=== PATIENT | male | born 1970 | race Caucasian/White ===

== ENCOUNTER 2021-06-24 07:38 | Day surgery (SDC) | payer BC ==
[2021-06-19 14:49] LABS: BASOPHILS % (AUTO) 0.8 % (0-1); EOSINOPHILS % (AUTO) 0.7 % (0-6); LYMPHOCYTES # (AUTO) 1.3 X10'3 (1.1-4.8); LYMPHOCYTES % (AUTO) 23.5 % (21-51); MEAN CORPUSCULAR HEMOGLOBIN 32.2 PG (27.0-31.0); MEAN CORPUSCULAR HGB CONC 34.6 g/dL (33.0-36.5); MEAN CORPUSCULAR VOLUME 93.2 FL (78-98); MEAN PLATELET VOLUME 8.3 FL (7.4-10.4); MONOCYTES # (AUTO) 0.3 X10'3 (0-0.9); MONOCYTES % (AUTO) 6.1 % (2-12); NEUTROPHILS # (AUTO) 3.7 X10'3 (1.8-7.7); NEUTROPHILS % (AUTO) 68.9 % (42-75); PRE OP HEMATOCRIT 46.3 % (42.0-52.0); PRE OP PLATELET COUNT 224 X10'3 (140-440); RED BLOOD COUNT 4.97 X10'6 (4.70-6.10); RED CELL DISTRIBUTION WIDTH 13.1 % (11.5-14.5)
[2021-06-19 15:00] LABS: PRE OP PROTIME 10.3 SECONDS (9.0-12.0)
[2021-06-19 15:04] LABS: ALBUMIN 3.9 G/DL (3.4-5.0); ALBUMIN/GLOBULIN RATIO 1.1 (1.1-1.5); ALKALINE PHOSPHATASE 94 IU/L (46-116); BLOOD UREA NITROGEN 17 MG/DL (7-18); BUN/CREATININE RATIO 16.8 (5.4-32.0); CALCIUM 8.9 MG/DL (8.5-10.1); CHLORIDE 109 MMOL/L (99-107); CREATININE 1.01 MG/DL (0.60-1.10); PRE OP ALT 31 U/L (30-65); PRE OP ANION GAP 9 (8-16); PRE OP AST 18 U/L (10-37); PRE OP BILIRUB, TOTAL 0.6 MG/DL (0.0-1.0); PRE OP GLUCOSE 88 MG/DL (70-104); PRE OP POTASSIUM 4.2 MMOL/L (3.4-5.1); PRE OP SODIUM 144 MMOL/L (135-145); TOTAL CARBON DIOXIDE 25.8 MMOL/L (24-32); TOTAL PROTEIN 7.6 G/DL (6.4-8.2); eGFR 78 ML/MIN
[2021-06-24] VITALS (13 sets, daily range): BP systolic 121–143; BP diastolic 84–95
[~2021-06-24] VITALS: Ht 175.3 cm; Wt 88.5 kg
[~2021-06-24 07:38] MED LIST: HYDR25SU48 RC; MULT-1085 PO; OMEG-167 PO; diazepam 5mg tablet PO PRN; famotidine 20mg tablet PO ONE; ringers solution, lacted 1,000 ML IV SCH
--- NOTE | 2021-06-24 08:44 | NUR ---
PT DECLINED VALIUM WHEN OFFERED PRE-OP
[2021-06-24] MEDS: oxymetazoline 15 ML nasal spray NS PRN ×2 (09:17→09:20)
[2021-06-24] MEDS ORDERED: diazepam 5mg tablet PO PRN (09:23)
--- NOTE | 2021-06-24 09:28 | NUR ---
PT CURRENTLY REQUESTING THE PERVIOUSLY OFFERED VALIUM PO PRE-OP, STATES FEEL "JUMPY"
[2021-06-24] MEDS ORDERED: cocaine 4% topical solution 4ml bottle ONE (09:59)
[2021-06-24] MEDS ORDERED: mupirocin 2% ointment 22GM ONE (09:59)
[2021-06-24] MEDS ORDERED: LIDOCAINE 1%/EPI 1:100,000 inj. 10 ML multi-dose vial ONE ×2 (09:59→10:21)
[2021-06-24] MEDS ORDERED: oxymetazoline 15 ML nasal spray NS ONE (10:00)
[2021-06-24] MEDS ORDERED: fentaNYL/PF 50MCG/1 ML 2ML syringe ONE (10:40)
[2021-06-24] MEDS ORDERED: midazolam 1 mg/ML 2ml injection ONE (10:40)
[2021-06-24] MEDS ORDERED: meperidine/PF 25mg/ml syringe ONE (10:40)
[2021-06-24] MEDS ORDERED: propofol inj 20 ML IV ONE (10:51)
[2021-06-24] MEDS ORDERED: ondansetron/PF 4mg/2ml inj ONE (10:51)
[2021-06-24] MEDS ORDERED: LIDOcaine 2% (20mg/ml) 5ml vial ONE (10:51)
[2021-06-24] MEDS ORDERED: meperidine/PF 25mg/ml syringe IV PRN ×3 (11:10)
[2021-06-24] MEDS ORDERED: morphine 4 MG/ML inj SYRINge IV PRN (11:10)
[2021-06-24] MEDS ORDERED: proCHLORperazine 10 MG/2 ml inj IV PRN (11:10)
[2021-06-24] MEDS ORDERED: ringers solution, lacted 1,000 ML IV SCH (11:10)
[2021-06-24] MEDS ORDERED: ondansetron/PF 4mg/2ml inj IV PRN (11:10)
[2021-06-24] MEDS ORDERED: morphine 2 MG/ML inj. syringe IV PRN (11:10)
--- NOTE | 2021-06-24 11:54 | NUR ---
Received from OR via [facility], accompanied by Anesthesiologist DR PADILLA and report given by Anesthesiologist. PT DROWSY, DENIES PAIN, BILAT COTTONNOIDS IN PLACE, NO DRAINAGE NOTED. Addendum: 06/24/21 at 1225 by Hallie Bowen RN Amended: Links added.
[2021-06-24] MEDS ORDERED: salt irrigation nasal spray 45 ML SPRAY NS PRN (13:30)
--- NOTE | 2021-06-24 14:14 | NUR ---
PT UP AND ABLE TO AMBULATE SAFELY, DENIES PAIN, VOIDED, D/C INSTRUCTIONS GIVEN, GONE OVER AND DEMONSTRATED TO PT WHO VERBALIZED UNDERSTANDING. PT D/CD TO HOME VIA W/C TO PRIVATE VEHICLE W/O INCIDENT. Addendum: 06/24/21 at 1436 by Hallie Bowen RN Amended: Links added.
[2021-06-24] MEDS ORDERED: mupirocin 2% nasal ointment 1gm UD NS SCH (21:00)
== END 2021-06-24 14:14 | disposition home or self-care (01) ==
LOC: PAS 07:38
PROVIDERS: ATTEND Otolaryngology
DX: J34.2 Deviated nasal septum (principal); J34.3 Hypertrophy of nasal turbinates; Z20.822 Contact with and (suspected) exposure to COVID-19; Z79.01 Long term (current) use of anticoagulants; Z79.899 Other long term (current) drug therapy; Z85.828 Personal history of other malignant neoplasm of skin; Z98.890 Other specified postprocedural states
CPT/HCPCS: 30140; 30520; 36415; 80053; 82948; 85025; 85576; 85610; 85730; 87635; 93005; A6402; C9250; C9803; J2001; J2175; J2250; J2405; J2704; J3010; J7120; Z7506; Z7508; Z7512; A4618; A7000